=== PATIENT | male | born 1995 | race African-American/Black ===

== ENCOUNTER 2017-02-24 14:42 | Emergency (ER) | payer OTHER ==
[2017-02-24 15:10] VITALS: BP 135/77; PULSE 72; RESP 18; TEMP 97.5
--- NOTE | 2017-02-24 15:39 | ED ---
Lower Extremity Injury HPI - General Chief Complaint: Extremity Injury, Lower Stated Complaint: ankle pain Time Seen by Provider: 02/24/17 15:12 Source: patient, RN notes reviewed Mode of arrival: ambulatory Limitations: no limitations - History of Present Illness Initial Comments: 22-year-old female presents to the emergency department with a chief complaint of right ankle sprain. Patient states about a week ago he was doing some wrestling and he twisted his ankle. Patient states he continues has some pain along the medial aspect. Patient states he has been limping. Patient states work said that he needs to have it evaluated. This did not happen at work on her. Patient states that he has been able to ambulate. Patient denies numbness or tingling. Patient denies any recent fever, chills, shortness of breath, chest pain, back pain, abdominal pain, nausea vomiting, numbness or tingling, dysuria or hematuria, constipation or diarrhea, headaches or visual changes, or any other current symptoms. - Related Data Home Medications Medication Instructions Recorded Confirmed No Known Home Medications [No 02/24/17 02/24/17 Known Home Medications] Allergies Allergy/AdvReac Type Severity Reaction Status Date / Time No Known Allergies Allergy Verified 02/24/17 15:49 Review of Systems ROS Statement: Those systems with pertinent positive or pertinent negative responses have been documented in the HPI. ROS Other: All systems not noted in ROS Statement are negative. Past Medical History Past Medical History: Asthma History of Any Multi-Drug Resistant Organisms: None Reported Past Surgical History: No Surgical Hx Reported Past Psychological History: No Psychological Hx Reported Smoking Status: Never smoker Past Alcohol Use History: None Reported Past Drug Use History: None Reported General Exam - General Exam Comments Initial Comments: General: The patient is awake and alert, in no distress, and does not appear acutely ill. Neck: The neck is supple, there is no tenderness. Cardiovascular: There is a regular rate and rhythm. No murmur, rub or gallop is appreciated. Respiratory: Lungs are clear to auscultation, respirations are non-labored, breath sounds are equal. No wheezes, stridor, rales, or rhonchi. Musculoskeletal: Sensation intact. Full muscle Strength testing and range of motion of right knee and right ankle. Patient does have minimal tenderness along the medial aspect. No swelling or deformity. full range of motion of the right foot with no bony tenderness. Neurological: CN II-XII intact, There are no obvious motor or sensory deficits. Coordination appears grossly intact. Speech is normal. Skin: Skin is warm and dry and no rashes or lesions are noted. Psychiatric: Normal mood and affect. Limitations: no limitations Course Vital Signs 02/24/17 15:07 Temperature 97.5 F L Pulse Rate 72 Respiratory 18 Rate Blood Pressure 135/77 O2 Sat by Pulse 95 Oximetry Medical Decision Making - Medical Decision Making 21-year-old male presents emergency department with history of right ankle sprain. Patient's x-rays reviewed and negative. This time we discussed ice. We discussed return parameters and follow-up. We discussed all the patient's questions. He stated he understood the plan. All questions have been answered. He will be discharged. - Radiology Data Radiology results: report reviewed, image reviewed Disposition Clinical Impression: Right ankle sprain Disposition: HOME SELF-CARE Condition: Stable Instructions: Ankle Sprain (ED) Additional Instructions: Please use medication as discussed. Please follow up with family doctor if symptoms have not improved over the next two days. Please return to the emergency room if your symptoms increase or worsen or for any other concerns. Referrals: Saúl Scales MD [STAFF PHYSICIAN] - 1-2 days Time of Disposition: 15:54
--- NOTE | 2017-02-24 15:51 | XR ---
EXAMINATION TYPE: XR ankle complete RT DATE OF EXAM: 02/24/2017 3:46 PM CLINICAL HISTORY: Medial side pain. TECHNIQUE: Frontal, lateral and oblique images of the right ankle are obtained. COMPARISON: None. FINDINGS: There is no acute fracture/dislocation evident in the right ankle. The ankle mortise appe ars within normal limits. The overlying soft tissue appears unremarkable. IMPRESSION: There is no acute fracture or dislocation in the right ankle. Unremarkable study.
== END 2017-02-24 16:05 | disposition home or self-care (01) ==
LOC: EC 14:42
DX: S93.401A Sprain of unspecified ligament of right ankle, initial encounter (principal); X50.1XXA Overexertion from prolonged static or awkward postures, initial encounter; Y93.72 Activity, wrestling
CPT/HCPCS: 99283

== ENCOUNTER 2017-06-10 10:20 | Emergency (ER) | payer OTHER ==
[2017-06-10] MEDS ORDERED: IPRATROPIUM-ALBUTEROL 3 ML NEB INHALATION STA (10:51)
--- NOTE | 2017-06-10 11:01 | ED ---
SOB HPI - General Chief Complaint: Shortness of Breath Stated Complaint: reynaldo Time Seen by Provider: 06/10/17 10:45 Source: patient, RN notes reviewed Mode of arrival: ambulatory Limitations: no limitations - History of Present Illness Initial Comments: 22-year-old male presents emergency Department with chief complaint of shortness of breath, cough 2 weeks. Patient states he has a history of asthma has been using his an inhaler with minimal relief. Patient has had some wheezing. Patient states his cough is dry and nonproductive. Denies fever, chills, sore throat, sinus congestion, ear pain, and dizziness. Patient has NO KNOWN DRUG ALLERGIES. Denies any nausea vomiting no sick contacts. - Related Data Home Medications Medication Instructions Recorded Confirmed Albuterol Inhaler [Ventolin Hfa 2 puff INHALATION RT-Q6H PRN 06/10/17 06/10/17 Inhaler] Previous Rx's Medication Instructions Recorded Azithromycin [Zithromax Z-pack] 0 mg PO DIRECTED #1 pack 06/10/17 predniSONE 50 mg PO DAILY #5 tab 06/10/17 Allergies Allergy/AdvReac Type Severity Reaction Status Date / Time No Known Allergies Allergy Verified 06/10/17 11:47 Review of Systems ROS Statement: Those systems with pertinent positive or pertinent negative responses have been documented in the HPI. ROS Other: All systems not noted in ROS Statement are negative. Past Medical History Past Medical History: Asthma History of Any Multi-Drug Resistant Organisms: None Reported Past Surgical History: No Surgical Hx Reported Past Psychological History: No Psychological Hx Reported Smoking Status: Never smoker Past Alcohol Use History: None Reported Past Drug Use History: None Reported General Exam Limitations: no limitations General appearance: alert, in no apparent distress Head exam: Present: atraumatic, normocephalic, normal inspection Eye exam: Present: normal appearance, PERRL, EOMI. Absent: scleral icterus, conjunctival injection, periorbital swelling ENT exam: Present: normal exam, normal oropharynx, mucous membranes moist, TM's normal bilaterally, normal external ear exam Neck exam: Present: normal inspection, full ROM. Absent: tenderness, meningismus, lymphadenopathy Respiratory exam: Present: wheezes (Faint). Absent: normal lung sounds bilaterally, respiratory distress, rales, rhonchi, stridor Cardiovascular Exam: Present: regular rate, normal rhythm, normal heart sounds. Absent: systolic murmur, diastolic murmur, rubs, gallop, clicks GI/Abdominal exam: Present: soft, normal bowel sounds. Absent: distended, tenderness, guarding, rebound, rigid Course Vital Signs 06/10/17 06/10/17 06/10/17 10:40 11:19 11:29 Temperature 99.0 F Pulse Rate 85 84 84 Respiratory 20 Rate Blood Pressure 136/85 O2 Sat by Pulse 96 Oximetry Medical Decision Making - Medical Decision Making 22-year-old male present emergency department for cough and shortness breath. Patient has asthmatic bronchitis. Chest x-ray does not show an acute pneumonia. Patient was started on azithromycin as a cough is from consistent for 2 weeks. Patient was given steroids and continuation of inhaler. Return parameters were discussed. Disposition Clinical Impression: Asthmatic bronchitis Disposition: HOME SELF-CARE Condition: Stable Instructions: Acute Bronchitis (ED) Additional Instructions: Please return to the Emergency Department if symptoms worsen or any other concerns. Prescriptions: Azithromycin [Zithromax Z-pack] 0 mg PO DIRECTED #1 pack predniSONE 50 mg PO DAILY #5 tab Referrals: None,Stated [Primary Care Provider] - 1-2 days Time of Disposition: 11:49
--- NOTE | 2017-06-10 11:14 | XR ---
EXAMINATION TYPE: XR chest 2V DATE OF EXAM: 06/10/2017 COMPARISON: NONE HISTORY: Shortness of breath and cough 2 weeks. History of asthma. TECHNIQUE: Frontal and lateral views of the chest are obtained. FINDINGS: There is no focal air space opacity, pleural effusion, or pneumothorax seen. The cardiac silhouette size is within normal limits. The osseous structures are intact. IMPRESSION: No acute cardiopulmonary process.
[2017-06-10 12:09] VITALS: BP 135/62; PULSE 80; RESP 18; TEMP 97.9
== END 2017-06-10 12:13 | disposition home or self-care (01) ==
LOC: EC 10:20
DX: J45.909 Unspecified asthma, uncomplicated (principal)
CPT/HCPCS: 71020; 94640; 99285

== ENCOUNTER 2017-12-16 17:42 | Emergency (ER) | payer OTHER ==
[2017-12-16 18:21] VITALS: BP 142/91; PULSE 76; RESP 20; TEMP 98.3
--- NOTE | 2017-12-16 18:39 | ED ---
General Adult HPI - General Chief complaint: Extremity Injury, Upper Stated complaint: Finger injury Time Seen by Provider: 12/16/17 18:26 Source: patient, RN notes reviewed Mode of arrival: ambulatory Limitations: no limitations - History of Present Illness Initial comments: Patient 42-year-old male who presents emergency room today with chief complaint of injury to his right thumb that occurred 2 days ago. He states he was walking down some steps when he slipped and tried to catch himself. He states he injured the right thumb at the time. He states worse with flexion and extension at the PIP joint. He denies any other injury or complaint. Patient denies any recent fever, chills, shortness of breath, chest pain, back pain, abdominal pain, nausea or vomiting, numbness or tingling, headaches or visual changes, or any other complaints. - Related Data Previous Rx's Medication Instructions Recorded Ibuprofen [Motrin] 600 mg PO Q6HR PRN #20 day 12/16/17 Allergies Allergy/AdvReac Type Severity Reaction Status Date / Time No Known Allergies Allergy Verified 12/16/17 18:45 Review of Systems ROS Statement: Those systems with pertinent positive or pertinent negative responses have been documented in the HPI. ROS Other: All systems not noted in ROS Statement are negative. Past Medical History Past Medical History: Asthma History of Any Multi-Drug Resistant Organisms: None Reported Past Surgical History: No Surgical Hx Reported Past Psychological History: No Psychological Hx Reported Smoking Status: Never smoker Past Alcohol Use History: None Reported Past Drug Use History: None Reported General Exam - General Exam Comments Initial Comments: General: The patient is awake and alert, in no distress, and does not appear acutely ill. Neck: The neck is supple. Musculoskeletal: Patient does have moderate swelling to the right thumb. Shows limited range of motion with flexion and extension at the PIP joint minus just a few degrees. Sensations are intact pulses equal bilateral 2+. His cap refill is less than 2 seconds. Neurological: A&O x 3. CN II-XII intact, There are no obvious motor or sensory deficits. Coordination appears grossly intact. Speech is normal. Skin: Skin is warm and dry and no rashes or lesions are noted. Psychiatric: Normal mood and affect. Limitations: no limitations Course Vital Signs 12/16/17 18:19 Temperature 98.3 F Pulse Rate 76 Respiratory 20 Rate Blood Pressure 142/91 O2 Sat by Pulse 99 Oximetry Medical Decision Making - Medical Decision Making X-rays reviewed and negative for any acute fracture dislocation. Results were discussed with the patient. He is advised to continue ice elevate the affected areas for pain. Advised follow-up with orthopedics over the next 7-10 days if symptoms persist. Advised return if any symptoms increase worsen. Disposition Clinical Impression: Thumb sprain Disposition: HOME SELF-CARE Condition: Good Instructions: Skier's Thumb (ED) Additional Instructions: Please use medication as discussed. Please follow-up with orthopedics in 7-10 days if symptoms have not improved. Please return to emergency room if the symptoms increase or worsen or for any other concerns. Prescriptions: Ibuprofen [Motrin] 600 mg PO Q6HR PRN #20 day PRN Reason: Pain Referrals: None,Stated [Primary Care Provider] - 1-2 days Anders Orozco DO [Doctor of Osteopathic Medicine] - 1-2 days Time of Disposition: 19:17
--- NOTE | 2017-12-16 19:13 | XR ---
EXAMINATION TYPE: XR hand complete RT DATE OF EXAM: 12/16/2017 COMPARISON: NONE HISTORY: Fall with hand pain TECHNIQUE: 3 views FINDINGS: I see no fracture nor dislocation. Carpal bones appear intact. Metacarpals appear normal. IMPRESSION: Negative right hand exam.
== END 2017-12-16 19:22 | disposition home or self-care (01) ==
LOC: EC 17:42
DX: S63.601A Unspecified sprain of right thumb, initial encounter (principal); W10.9XXA Fall (on) (from) unspecified stairs and steps, initial encounter; Y93.01 Activity, walking, marching and hiking; Y92.89 Other specified places as the place of occurrence of the external cause
CPT/HCPCS: 99283

== ENCOUNTER 2018-04-12 01:19 | Emergency (ER) | payer OTHER ==
[2018-04-12] MEDS ORDERED: methylPREDNISolone SOD SUCCI 125 MG/2 ML VIAL IV STA (01:35)
[2018-04-12] MEDS ORDERED: diphenhydrAMINE 50 MG/ML 1 ML VIAL IVP STA (01:35)
[2018-04-12] MEDS ORDERED: FAMOTIDINE 20 MG/2 ML VIAL IV STA (01:35)
--- NOTE | 2018-04-12 01:39 | ED ---
General Adult HPI - General Chief complaint: Allergic Reaction Stated complaint: Possible ALLERGIC reaction Time Seen by Provider: 04/12/18 01:22 Source: patient, RN notes reviewed Mode of arrival: EMS Limitations: no limitations - History of Present Illness Initial comments: Patient is a pleasant 23-year-old male presenting to the emergency department with concerns for ALLERGIC reaction. Onset was fairly sudden around 1 hour ago. Onset was following eating a supporting pizza. Patient believes he has been exposed to all the items on it previously. No history of similar symptoms previously. Patient states his throat feels itchy and swollen. Patient feels a little short of breath. Patient does have nasal congestion. Patient states his skin felt itchy earlier however that has essentially resolved. No swelling of the face or lips or tongue. - Related Data Previous Rx's Medication Instructions Recorded Ibuprofen [Motrin] 600 mg PO Q6HR PRN #20 day 12/16/17 predniSONE 20 mg PO BID #10 tab 04/12/18 Allergies Allergy/AdvReac Type Severity Reaction Status Date / Time No Known Allergies Allergy Verified 04/12/18 01:29 Review of Systems ROS Statement: Those systems with pertinent positive or pertinent negative responses have been documented in the HPI. ROS Other: All systems not noted in ROS Statement are negative. Constitutional: Denies: fever Eyes: Denies: eye pain ENT: Denies: ear pain Respiratory: Reports: dyspnea. Denies: cough Cardiovascular: Denies: chest pain Endocrine: Denies: fatigue Gastrointestinal: Denies: abdominal pain Genitourinary: Denies: dysuria Musculoskeletal: Denies: back pain Skin: Denies: rash Neurological: Denies: weakness Past Medical History Past Medical History: Asthma History of Any Multi-Drug Resistant Organisms: None Reported Past Surgical History: No Surgical Hx Reported Past Psychological History: No Psychological Hx Reported Smoking Status: Current every day smoker Past Alcohol Use History: None Reported Past Drug Use History: None Reported General Exam Limitations: no limitations General appearance: alert, in no apparent distress Head exam: Present: atraumatic Eye exam: Present: normal appearance, PERRL ENT exam: Present: other (Minimal edema of the uvula. No edema of the tongue or lips.) Neck exam: Present: normal inspection Respiratory exam: Present: normal lung sounds bilaterally. Absent: respiratory distress, wheezes, accessory muscle use Cardiovascular Exam: Present: regular rate, normal rhythm GI/Abdominal exam: Present: soft. Absent: tenderness Extremities exam: Present: normal inspection Neurological exam: Present: alert Psychiatric exam: Present: normal affect, normal mood Skin exam: Present: normal color Course Vital Signs 04/12/18 01:25 Temperature 97.4 F L Pulse Rate 96 Respiratory 20 Rate Blood Pressure 137/80 O2 Sat by Pulse 93 L Oximetry Medical Decision Making - Medical Decision Making Patient reevaluated and feels much better. Uvula exam is unchanged or slightly improved. Patient denies any dyspnea and requests discharge. Disposition Clinical Impression: Allergic reaction Disposition: HOME SELF-CARE Condition: Stable Instructions: Allergies (ED), Food Allergy (ED) Additional Instructions: Please follow-up with primary care physician in the next day or 2 for recheck. Continue Benadryl 4 times daily for the next 5 days. Return for swelling, difficulty breathing, worsening or changing symptoms or other concerns. Prescriptions: predniSONE 20 mg PO BID #10 tab Is patient prescribed a controlled substance at d/c from ED?: No Referrals: Gardenia Velez DO [REFERRING] - 1-2 days Time of Disposition: 02:54
[2018-04-12 03:32] VITALS: BP 117/66; PULSE 75; RESP 16; TEMP 97.2
== END 2018-04-12 03:37 | disposition home or self-care (01) ==
LOC: EC 01:19
DX: T78.40XA Allergy, unspecified, initial encounter (principal); J45.909 Unspecified asthma, uncomplicated; F17.200 Nicotine dependence, unspecified, uncomplicated
CPT/HCPCS: 99283; 96374; 96375 ×2; J1200; J2930

== ENCOUNTER 2018-05-18 12:48 | Emergency (ER) | payer OTHER ==
[2018-05-18 13:07] VITALS: BP 154/100; PULSE 89; RESP 18; TEMP 98
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
[2018-05-18] MEDS ORDERED: SODIUM CHLORIDE 0.9% 1,000 ML IV ONE (14:20)
[2018-05-18 15:23] LABS: Basophils % (A) 1 %; Eosinophils # (A) 0.2 k/uL (0-0.7); Eosinophils % (A) 3 %; HGB 16.5 gm/dL (13.0-17.5); Lymphocytes # (A) 1.6 k/uL (1.0-4.8); Lymphocytes % (A) 27 %; MCH 26.8 pg (25.0-35.0); Mean Platelet Volume 6.8; Monocytes # (A) 0.4 k/uL (0-1.0); Monocytes % (A) 7 %; Neutrophils # (A) 3.6 k/uL (1.3-7.7); Neutrophils % (A) 60 %; Platelet Count 208 k/uL (150-450); RBC 6.18 m/uL (4.30-5.90); RDW 13.4 % (11.5-15.5)
[2018-05-18 15:32] LABS: ALT 32 U/L (21-72); AST 28 U/L (17-59); Albumin 4.4 g/dL (3.5-5.0); Alkaline Phosphatase 71 U/L (38-126); Anion Gap 10 mmol/L; Blood Urea Nitrogen 9 mg/dL (9-20); Calcium 9.4 mg/dL (8.4-10.2); Carbon Dioxide 27 mmol/L (22-30); Chloride 103 mmol/L (98-107); Glucose 106 mg/dL (74-99); Potassium 3.7 mmol/L (3.5-5.1); Sodium 140 mmol/L (137-145); Total Bilirubin 1.3 mg/dL (0.2-1.3); Total Protein 7.6 g/dL (6.3-8.2)
[2018-05-18 16:18] LABS: Amorphous Sediment,Urine Rare /hpf; Appearance,Urine Cloudy (Clear); Bilirubin,Urine Negative (Negative); Blood,Urine Negative (Negative); Color,Urine Yellow; Glucose,Urine (UA) Negative (Negative); Ketones,Urine 2+ (Negative); Leukocyte Esterase,Urine Negative (Negative); Mucus,Urine Few /hpf; Nitrite,Urine Negative (Negative); Protein,Urine 1+ (Negative); Specific Gravity,Urine 1.022 (1.001-1.035); Squamous Epithelial Cell,Urine 1 /hpf (0-4); WBC,Urine 1 /hpf (0-5)
[2018-05-18 16:29] LABS: Amphetamine Screen,Urine Not Detected (NotDetected); Barbiturate Screen,Urine Not Detected (NotDetected); Benzodiazepines Screen,Urine Not Detected (NotDetected); Cocaine Screen,Urine Not Detected (NotDetected); Methadone Screen, Urine Not Detected (NotDetected); Opiate Screen,Urine Not Detected (NotDetected); Oxycodone Screen, Urine Not Detected (NotDetected); Phencyclidine Screen,Urine Not Detected (NotDetected); Tricyclic Antidepressant,Urine Not Detected (NotDetected); Urn Cannabinoid Scrn Detected (NotDetected)
== END 2018-05-18 17:14 | disposition home or self-care (01) ==
LOC: EC 12:48
DX: F32.9 Major depressive disorder, single episode, unspecified (principal); E86.0 Dehydration; R11.0 Nausea; R00.2 Palpitations; F17.200 Nicotine dependence, unspecified, uncomplicated; Z59.0 Homelessness
CPT/HCPCS: 36415; 80053; 80306; 81001; 82075; 85025; 93005; 96360; 96361; 99284

== ENCOUNTER 2019-02-02 12:14 | Emergency (ER) | payer OTHER ==
[2019-02-02 12:32] VITALS: PULSE 107
[2019-02-02] MEDS ORDERED: ONDANSETRON ODT 4 MG TAB PO STA (12:46)
[2019-02-02] MEDS ORDERED: IBUPROFEN 600 MG TAB PO STA (12:46)
[2019-02-02] MEDS ORDERED: ACETAMINOPHEN TAB 500 MG TAB PO STA (12:46)
[2019-02-02] MEDS ORDERED: OSELTAMIVIR 75 MG CAP PO STA (13:12)
--- NOTE | 2019-02-02 13:12 | ED ---
General Adult HPI - General Chief complaint: Fever Stated complaint: NVD Time Seen by Provider: 02/02/19 12:25 Source: patient, RN notes reviewed Mode of arrival: EMS Limitations: no limitations - History of Present Illness Initial comments: This is a 23-year-old male who presents emergency Department complaining of a fever and a cough over the last couple of days. Patient states he is coughing so hard he vomited multiple times. Patient states he is unable to keep down at still or cough medicine because he eventually threw it up because of his sig nificant cough. Patient denies shortness of breath or difficulty breathing. Patient denies any chest pain. Patient denies any abdominal pain. Patient denies any lightheadedness or dizziness. Patient states he does have a mild headache. Patient denies any rashes lesions or areas of erythema - Related Data Previous Rx's Medication Instructions Recorded Oseltamivir [Tamiflu] 75 mg PO Q12HR 5 Days cap 02/02/19 Allergies Allergy/AdvReac Type Severity Reaction Status Date / Time No Known Allergies Allergy Verified 02/02/19 12:24 Review of Systems ROS Statement: Those systems with pertinent positive or pertinent negative responses have been documented in the HPI. ROS Other: All systems not noted in ROS Statement are negative. Past Medical History Past Medical History: Asthma History of Any Multi-Drug Resistant Organisms: None Reported Past Surgical History: No Surgical Hx Reported Past Psychological History: Depression Smoking Status: Current some day smoker Past Alcohol Use History: Rare Past Drug Use History: Marijuana General Exam - General Exam Comments Initial Comments: GENERAL: Patient is well-developed and well-nourished. Patient is nontoxic and well- hydrated and is in mild distress. ENT: Neck is soft and supple. No significant lymphadenopathy is noted. Oropharynx is clear. Moist mucous membranes. Neck has full range of motion without eliciting any pain. EYES: The sclera were anicteric and conjunctiva were pink and moist. Extraocular movements were intact and pupils were equal round and reactive to light. Eyelids were unremarkable. PULMONARY: Unlabored respirations. Good breath sounds bilaterally. No audible rales rhonchi or wheezing was noted. CARDIOVASCULAR: There is a regular rate and rhythm without any murmurs gallops or rubs. ABDOMEN: Soft and nontender with normal bowel sounds. No palpable organomegaly was noted. There is no palpable pulsatile mass. SKIN: Skin is clear with no lesions or rashes and otherwise unremarkable. NEUROLOGIC: Patient is alert and oriented x3. Cranial nerves II through XII are grossly intact. Motor and sensory are also intact. Normal speech, volume and content. Symmetrical smile. MUSCULOSKELETAL: Normal extremities with adequate strength and full range of motion. No lower extremity swelling or edema. No calf tenderness. LYMPHATICS: No significant lymphadenopathy is noted PSYCHIATRIC: Normal psychiatric evaluation. Limitations: no limitations Course Vital Signs 02/02/19 12:22 Temperature 100.7 F H Pulse Rate 107 H Respiratory 22 Rate Blood Pressure 144/86 O2 Sat by Pulse 99 Oximetry Medical Decision Making - Medical Decision Making Patient received Motrin and Tylenol and Zofran and emergency department. Patient also received Tamiflu in the emergency department. - Lab Data Lab Results 02/02/19 Range/Units 12:25 Influenza Type A RNA Detected H (Not Detectd) Influenza Type B (PCR) Not Detected (Not Detectd) Disposition Clinical Impression: Influenza Disposition: HOME SELF-CARE Condition: Good Instructions (If sedation given, give patient instructions): Influenza (ED) Prescriptions: Oseltamivir [Tamiflu] 75 mg PO Q12HR 5 Days cap Is patient prescribed a controlled substance at d/c from ED?: No Referrals: None,Stated [Primary Care Provider] - 1-2 days Time of Disposition: 13:11
[2019-02-02 13:23] VITALS: BP 140/81; RESP 16; TEMP 99.8
--- NOTE | 2019-02-02 13:24 | XR ---
EXAMINATION TYPE: XR chest 2V DATE OF EXAM: 02/02/2019 COMPARISON: Prior chest x-ray 08/29/2017 HISTORY: Difficulty breathing TECHNIQUE: Frontal and lateral views of the chest are obtained. FINDINGS: Bronchial wall thickening is present. Correlate for reactive airways disease, bronchitis IMPRESSION: No acute cardiopulmonary process.
== END 2019-02-02 13:24 | disposition home or self-care (01) ==
LOC: EC 12:14
DX: J10.1 Influenza due to other identified influenza virus with other respiratory manifestations (principal); J45.909 Unspecified asthma, uncomplicated; R11.2 Nausea with vomiting, unspecified; R19.7 Diarrhea, unspecified; F17.200 Nicotine dependence, unspecified, uncomplicated
CPT/HCPCS: 71046; 87502; 99284

== ENCOUNTER 2019-05-26 18:50 | Emergency (ER) | payer OTHER ==
[2019-05-26 19:02] VITALS: BP 150/89; PULSE 78; RESP 18; TEMP 98.4
--- NOTE | 2019-05-26 19:43 | ED ---
General Adult HPI - General Chief complaint: Recheck/Abnormal Lab/Rx Stated complaint: Dizzy Time Seen by Provider: 05/26/19 19:10 Source: patient Mode of arrival: ambulatory Limitations: no limitations - History of Present Illness Initial comments: 24-year-old male patient presents to the emergency department today requesting a clearance to return to work. Patient states yesterday while at work he had a 2 hour period where he felt very dizzy and lightheaded. Patient states that the symptoms resolved however his job wanted him to get clearance to return to work tomorrow. Patient states that today he has felt fine. He denies any current dizziness, blurred vision, double vision, headache, numbness, tingling, or weakness. Denies any head injury. States that prior to onset of symptoms yesterday he had not eaten or drank anything. States it is very warm outside and he was sweating. He feels he may have been dehydrated. States he has a med ical history significant for asthma and eczema but denies any current concerns for these conditions. Patient denies any recent rash, fever, chills, shortness breath, chest pain, abdominal pain, nausea, vomiting, diarrhea, constipation, back pain, hematuria, dysuria, urinary urgency, urinary frequency, or any other complaints. - Related Data Home Medications Medication Instructions Recorded Confirmed Albuterol Inhaler [Ventolin Hfa 1 - 2 puff INHALATION RT-Q6H PRN 05/26/19 05/26/19 Inhaler] Allergies Allergy/AdvReac Type Severity Reaction Status Date / Time No Known Allergies Allergy Verified 05/26/19 19:25 Review of Systems ROS Statement: Those systems with pertinent positive or pertinent negative responses have been documented in the HPI. ROS Other: All systems not noted in ROS Statement are negative. Past Medical History Past Medical History: Asthma History of Any Multi-Drug Resistant Organisms: None Reported Past Surgical History: No Surgical Hx Reported Past Psychological History: Depression Smoking Status: Current some day smoker Past Alcohol Use History: Rare Past Drug Use History: Marijuana General Exam Limitations: no limitations General appearance: alert, in no apparent distress Eye exam: Present: normal appearance, PERRL, EOMI. Absent: scleral icterus, conjunctival injection, nystagmus, periorbital swelling ENT exam: Present: normal exam, normal oropharynx, mucous membranes moist Respiratory exam: Present: normal lung sounds bilaterally. Absent: respiratory distress, wheezes, rales, rhonchi, stridor Cardiovascular Exam: Present: regular rate, normal rhythm, normal heart sounds. Absent: systolic murmur, diastolic murmur, rubs, gallop, clicks GI/Abdominal exam: Present: soft, normal bowel sounds. Absent: distended, tenderness, guarding, rebound, rigid Neurological exam: Present: alert, oriented X3, CN II-XII intact, other (Strength in all 4 Extremities is 5/5.) Psychiatric exam: Present: normal affect, normal mood Skin exam: Present: warm, dry, intact, normal color. Absent: rash Course Vital Signs 05/26/19 19:00 Temperature 98.4 F Pulse Rate 78 Respiratory 18 Rate Blood Pressure 150/89 O2 Sat by Pulse 98 Oximetry Medical Decision Making - Medical Decision Making 24-year-old male patient presents to the emergency department today for clearance to return to work. Patient states yesterday he had a 2 hour period where he felt dizzy. States that he is now symptom-free by his job requires him to have a clearance to return to work. Patient believes he may have been dehydrated because he hadn't eaten or drank anything prior to working out in the hot sun all day. Patient states he is otherwise healthy. He is declining test ing at this time and is requesting a work note only. He is instructed to follow-up with his primary care physician for recheck in 1-2 days. Return parameters were discussed in detail. He verbalizes understanding and agrees with this plan. Disposition Clinical Impression: Dizziness Disposition: HOME SELF-CARE Condition: Good Instructions (If sedation given, give patient instructions): Dizziness (ED) Additional Instructions: Increase fluids. Follow-up through primary care physician for recheck in 1-2 days. Return to the emergency department immediately for any new, worsening, or concerning symptoms. Is patient prescribed a controlled substance at d/c from ED?: No Referrals: None,Stated [Primary Care Provider] - 1-2 days Time of Disposition: 19:42
== END 2019-05-26 19:49 | disposition home or self-care (01) ==
LOC: EC 18:50
DX: R42 Dizziness and giddiness (principal); J45.909 Unspecified asthma, uncomplicated; F17.200 Nicotine dependence, unspecified, uncomplicated
CPT/HCPCS: 99283

== ENCOUNTER 2019-06-28 11:23 | Emergency (ER) | payer OTHER ==
[2019-06-28 12:04] VITALS: TEMP 98.4
[2019-06-28] MEDS ORDERED: DEXAMETHASONE SOD PHOSPHATE 10 MG/ML 1 ML VIAL IM STA (12:22)
--- NOTE | 2019-06-28 13:48 | ED ---
Allergic Reaction HPI - General Chief complaint: Allergic Reaction Stated complaint: allergic reaction; swollen eyes Time Seen by Provider: 06/28/19 12:02 Source: patient Mode of arrival: ambulatory Limitations: no limitations - History of Present Illness Initial Comments: Patient is a 34-year-old male presenting to emergency per with a chief complaint of eye swelling. Patient reports smoking marijuana last night when he developed a sudden onset of bilateral periorbital edema. Patient reports the symptoms have since slowly resolved. He reports left-sided swelling is causing trouble seeing. Patient reports difficulty opening his left eye. Patient denies pain with extra ocular movements. Patient denies any discharge. Patient reports bilateral eye discomfort. Patient is unsure whether the marijuana was laced with any other drugs. Patient denies chest pain, shortness of breath, dyspnea, dysphagia, drooling. Patient reports taking Benadryl with minimal edema. Patient is also requesting to get tested for gonorrhea and chlamydia. Patient denies any urinary symptoms. Patient does report unprotected sexual intercourse. - Related Data Previous Rx's Medication Instructions Recorded methylPREDNISolone Dose Pack 4 mg PO DIRECTED #21 package 06/28/19 [Medrol Dose Pack] Allergies Allergy/AdvReac Type Severity Reaction Status Date / Time No Known Allergies Allergy Verified 06/28/19 11:56 Review of Systems ROS Statement: Those systems with pertinent positive or pertinent negative responses have been documented in the HPI. ROS Other: All systems not noted in ROS Statement are negative. Past Medical History Past Medical History: Asthma History of Any Multi-Drug Resistant Organisms: None Reported Past Surgical History: No Surgical Hx Reported Past Psychological History: Depression Smoking Status: Current some day smoker Past Alcohol Use History: Rare Past Drug Use History: Marijuana General Exam Limitations: no limitations General appearance: alert, in no apparent distress Head exam: Present: atraumatic, normocephalic, normal inspection Eye exam: Present: PERRL, EOMI, periorbital swelling (Bilateral periorbital swelling. More the left eye compared to the right.). Absent: normal appearance, conjunctival injection, periorbital tenderness, other (No entrapm ent, no discharge, no pain with extraocular movements.) Pupils: Present: normal accommodation ENT exam: Present: normal exam, normal oropharynx (Uvula midline. No enlarged tonsils or exudates noted.), mucous membranes moist, TM's normal bilaterally, normal external ear exam Neck exam: Present: normal inspection, full ROM Respiratory exam: Present: normal lung sounds bilaterally Cardiovascular Exam: Present: regular rate, normal rhythm, normal heart sounds GI/Abdominal exam: Present: soft, normal bowel sounds. Absent: tenderness, guarding, rebound Extremities exam: Present: normal inspection, full ROM Back exam: Present: normal inspection, full ROM Neurological exam: Present: alert, oriented X3 Psychiatric exam: Present: normal affect, normal mood Skin exam: Present: warm, intact, normal color Course Vital Signs 06/28/19 06/28/19 11:45 11:59 Temperature 98.4 F Pulse Rate 72 Respiratory 18 18 Rate Blood Pressure 146/93 O2 Sat by Pulse 99 Oximetry Medical Decision Making - Medical Decision Making Patient is a 24-year-old male presenting to emergency Department with chief complaint of eye swelling. Patient developed bilateral periorbital edema after smoking marijuana last night. Patient is unaware whether the marijuana was laced with other drugs. Patient denies dyspnea, dysphagia, drooling or shortness of breath. Patient reports the symptoms have improved since yesterday. Patient denies pain with extraocular movements. No entrapment noted. At this point I suspect an ALLERGIC reaction to some of the substances the patient has been using. Patient was given 10 mg of Decadron. On reevaluation patient reports feeling better. Visual acuity is 20/20 bilateral. The swelling has also decreased. Patient will be discharged with a Medrol Dosepak. Patient is to follow-up with primary care. Patient patient has no urinary symptoms but is requesting gonorrhea and chlamydia testing. Gonorrhea and chlamydia samples ending. Strict return parameters were thoroughly discussed the patient was understanding and agreeable. Case discussed with physician. Disposition Clinical Impression: Allergic reaction Disposition: HOME SELF-CARE Condition: Stable Instructions (If sedation given, give patient instructions): Anaphylaxis (ED) Additional Instructions: Please follow with primary care. Please take prescribed medication as directed. Please return to emergency department is symptoms worsen. Is patient prescribed a controlled substance at d/c from ED?: No Referrals: None,Stated [Primary Care Provider] - 1-2 days Time of Disposition: 13:47
[2019-06-28 14:03] VITALS: BP 132/92; PULSE 64; RESP 16
[2019-06-29 15:09] LABS: C. trachomatis,PCR Negative (Neg,Equiv); Chlamydia trachomatis Source Urine; N. gonorrhoeae,PCR Negative (Neg,Equiv); Neisseria Source Urine
== END 2019-06-28 14:02 | disposition home or self-care (01) ==
LOC: EC 11:23
DX: T78.40XA Allergy, unspecified, initial encounter (principal); H05.223 Edema of bilateral orbit; F12.90 Cannabis use, unspecified, uncomplicated; F17.200 Nicotine dependence, unspecified, uncomplicated
CPT/HCPCS: 87491; 87591; 96372; 99283; J1100

== ENCOUNTER 2019-07-09 19:56 | Emergency (ER) | payer OTHER ==
[2019-07-09] MEDS ORDERED: predniSONE 50 MG TAB PO STA (20:26)
[2019-07-09] MEDS ORDERED: IPRATROPIUM-ALBUTEROL 3 ML NEB INHALATION STA (20:26)
[2019-07-09] MEDS ORDERED: ACETAMINOPHEN TAB 325 MG TAB PO STA (20:30)
[2019-07-09] MEDS ORDERED: IBUPROFEN 600 MG TAB PO STA (20:30)
--- NOTE | 2019-07-09 21:03 | XR ---
EXAMINATION TYPE: XR chest 2V DATE OF EXAM: 07/09/2019 COMPARISON: February 02, 2019 HISTORY: Short of breath TECHNIQUE: Frontal and lateral views of the chest are obtained. FINDINGS: Heart and mediastinum are normal. Lungs are clear. Diaphragm is normal. Bony thorax appear s normal. IMPRESSION: Normal chest. No change.
[2019-07-09 21:07] VITALS: RESP 18
[2019-07-09] MEDS ORDERED: ALBUTEROL NEBULIZED 2.5 MG/3 ML INHALATION STA (21:50)
--- NOTE | 2019-07-09 23:00 | ED ---
General Adult HPI - General Chief complaint: Upper Respiratory Infection Stated complaint: YAA Time Seen by Provider: 07/09/19 20:11 Source: patient, RN notes reviewed, old records reviewed Mode of arrival: ambulatory Limitations: no limitations - History of Present Illness Initial comments: 24-year-old male patient with history of asthma presents ED chief complaint of 2 days of cough, congestion, asthma exacerbation. Patient also reports that he has anterior sinus pressure in his maxillary sinus. Patient denies any nausea or vomiting. Patient denies any other complaints. Systemic: Pt denies fatigue, fever/chills, rash. Pt denies weakness, night sweats, weight loss. Neuro: Pt denies headache, visual disturbances, syncope or pre-syncope. HEENT: Pt denies ocular discharge or irritation, otalgia, rhinorrhea, pharyngitis or notable lymphadenopathy. Cardiopulmonary: Pt denies chest pain, heart palpitations, dyspnea on exertion. Abdominal/GI: Pt denies abdominal pain, n/v/d. : Pt denies dysuria, burning w/ urination, frequency/urgency. Denies new onset urinary or bowel incontinence. MSK: Pt denies myalgia, loss of strength or function in extremities. Neuro: Pt denies new onset weakness, paresthesias. - Related Data Previous Rx's Medication Instructions Recorded Albuterol Inhaler [Ventolin Hfa 1 - 2 puff INHALATION Q4-6H PRN #1 07/09/19 Inhaler] inhaler Amoxicillin/Potassium Clav 1 each PO Q12HR 7 Days #14 tab 07/09/19 [Augmentin 875-125 Tablet] predniSONE 50 mg PO DAILY #5 tab 07/09/19 Allergies Allergy/AdvReac Type Severity Reaction Status Date / Time No Known Allergies Allergy Verified 07/09/19 22:40 Review of Systems ROS Statement: Those systems with pertinent positive or pertinent negative responses have been documented in the HPI. ROS Other: All systems not noted in ROS Statement are negative. Past Medical History Past Medical History: Asthma History of Any Multi-Drug Resistant Organisms: None Reported Past Surgical History: No Surgical Hx Reported Past Psychological History: Depression Smoking Status: Current some day smoker Past Alcohol Use History: Rare Past Drug Use History: Marijuana General Exam - General Exam Comments Initial Comments: Constitutional: NAD, AOX3, Pt has pleasant affect. HEENT: NC/AT, trachea midline, neck supple, no lymphadenopathy. Posterior pharynx non erythematous, without exudates. External ears appear normal, without discharge. Mucous membranes moist. Eyes PERRLA, EOM intact. There is no scleral icterus. No pallor noted. Cardiopulmonary: RRR, no murmurs, rubs or gallops, no JVD noted. Wheezing noted in anterior lung valenzuela, much improved after breathing treatment.. No peripheral edema. Abdominal exam: Abdomen soft and non-distended. Abdomen non-tender to palpation in all 4 quadrants. Bowel sounds active in LLQ. No hepatosplenomegaly. No ecchymosis Neuro: CN II-XII grossly intact. No nuchal rigidity. No raccon eyes, no garcia sign, no hemotympanum. No cervical spinal tenderness. MSK: No posterior calf tenderness bilaterally, homans sign negative bilaterally. Posterior tibialis and radial pulse +2 bilaterally. Sensation intact in upper and lower extremities. Full active ROM in upper and lower extremities, 5/5 stregnth. Limitations: no limitations Course Vital Signs 07/09/19 07/09/19 07/09/19 20:01 20:22 20:36 Temperature 99.5 F 102.2 F H Pulse Rate 106 H 97 Respiratory 24 20 Rate Blood Pressure 151/95 O2 Sat by Pulse 94 L Oximetry 07/09/19 07/09/19 07/09/19 20:51 21:06 21:48 Temperature 100.4 F H 97.9 F Pulse Rate 110 H 116 H 100 Respiratory 18 18 Rate Blood Pressure 154/88 144/85 O2 Sat by Pulse 93 L 94 L Oximetry 07/09/19 07/09/19 22:07 22:14 Temperature Pulse Rate 106 H 96 Respiratory Rate Blood Pressure O2 Sat by Pulse Oximetry Medical Decision Making - Medical Decision Making 24-year-old male patient with history of asthma presents ED chief complaint of 2 days of cough, congestion, asthma exacerbation. Patient also reports that he has anterior sinus pressure in his maxillary sinus. Patient denies any nausea or vomiting. Patient denies any other complaints. Vital signs initially displayed hypoxia of 94. Patient was administered 2 breathing treatments as well as prednisone. Chest x-ray revealed no acute process. On repeat evaluation patient patient pulse oxygenation was approximate 93%, however patient was lying down in bed , patient sat upright, oxygenation at 98%. Patient was offered admission for asthma exacerbation, declined. Patient discharged with steroids, breathing treatment. Patient will be placed on Augmentin for sinusitis. Case discussed with Dr. Goodson. - Lab Data Lab Results 07/09/19 Range/Units 21:46 Influenza Type A RNA Not Detected (Not Detectd) Influenza Type B (PCR) Not Detected (Not Detectd) Disposition Clinical Impression: Asthma exacerbation, Sinusitis Disposition: HOME SELF-CARE Condition: Stable Instructions (If sedation given, give patient instructions): Asthma (ED), Sinusitis (ED) Additional Instructions: Patient to adhere to previously discussed treatment plan and will take medication(s) as directed. Patient to follow up with PCP in 1-2 days. Patient to return to ED if symptoms do not improve. Take antibiotics as prescribed, follow up with primary care provider tomorrow, return to ER if condition worsens. Prescriptions: Amoxicillin/Potassium Clav [Augmentin 875-125 Tablet] 1 each PO Q12HR 7 Days #14 tab predniSONE 50 mg PO DAILY #5 tab Albuterol Inhaler [Ventolin Hfa Inhaler] 1 - 2 puff INHALATION Q4-6H PRN #1 inhaler PRN Reason: Cough Is patient prescribed a controlled substance at d/c from ED?: No Referrals: None,Stated [Primary Care Provider] - 1-2 days
[2019-07-09 23:17] VITALS: BP 131/89; PULSE 100; TEMP 98.9
== END 2019-07-09 23:17 | disposition home or self-care (01) ==
LOC: EC 19:56
DX: J45.901 Unspecified asthma with (acute) exacerbation (principal); J32.9 Chronic sinusitis, unspecified; F17.200 Nicotine dependence, unspecified, uncomplicated
CPT/HCPCS: 94640 ×2; 87502; 71046; 99285; J7512

== ENCOUNTER 2021-03-04 18:30 | Emergency (ER) | payer OTHER ==
[2021-03-04 18:36] VITALS: BP 168/97; PULSE 105; RESP 18; TEMP 99.1
--- NOTE | 2021-03-04 19:55 | ED ---
Psych HPI - General Chief Complaint: Psychiatric Symptoms Stated Complaint: Petition Time Seen by Provider: 03/04/21 18:30 Source: patient, police Mode of arrival: ambulatory - History of Present Illness Initial Comments: Patient is a 26-year-old male with past medical history of asthma who presents emergency Department petitioned by police. Patient was apparently sitting on t he side of the road near the white line. Police had approached him and told him that he needed to move away from the road. This is when the patient replied that he wouldn't care if he Hits. This prompted police to pick him up and bring him to the emergency department and petitioned him. Patient reports to me that he was trying to get arrested. He was kicked out of his "baby mamas" house and had nowhere to go. He wanted to get arrested so that he had a place to stay. He denies to me that he was intentionally trying to harm himself. I questioned the patient whether he has any family or friends for which she states no. Also reports that he can go to a [facility] because they weren't accepting any new people. This is not the first time the patient has been kicked out of his place of residence. Patient denies homicidal ideations. No drug or alcohol use. No other alleviating, head chef modifying factors - Related Data Previous Rx's Medication Instructions Recorded Albuterol Inhaler ([facility]) [Ventolin 1 - 2 puff INHALATION Q4-6H PRN #1 07/09/19 Hfa Inhaler ([facility])] inhaler Amoxicillin/Potassium Clav 1 each PO Q12HR 7 Days #14 tab 07/09/19 [Augmentin 875-125 Tablet] predniSONE 50 mg PO DAILY #5 tab 07/09/19 Allergies Allergy/AdvReac Type Severity Reaction Status Date / Time No Known Allergies Allergy Verified 03/04/21 18:36 Review of Systems ROS Statement: Those systems with pertinent positive or pertinent negative responses have been documented in the HPI. ROS Other: All systems not noted in ROS Statement are negative. Past Medical History Past Medical History: Asthma History of Any Multi-Drug Resistant Organisms: None Reported Past Surgical History: No Surgical Hx Reported Past Psychological History: Depression Past Alcohol Use History: Occasional, Rare Past Drug Use History: Marijuana General Exam Limitations: no limitations General appearance: alert, in no apparent distress Head exam: Present: atraumatic, normocephalic, normal inspection Eye exam: Present: normal appearance, PERRL, EOMI. Absent: scleral icterus, conjunctival injection, periorbital swelling ENT exam: Present: normal exam, mucous membranes moist Neck exam: Present: normal inspection. Absent: tenderness, meningismus, lymphadenopathy Respiratory exam: Present: normal lung sounds bilaterally. Absent: respiratory distress, wheezes, rales, rhonchi, stridor Cardiovascular Exam: Present: regular rate, normal rhythm, normal heart sounds. Absent: systolic murmur, diastolic murmur, rubs, gallop, clicks GI/Abdominal exam: Present: soft, normal bowel sounds. Absent: distended, tenderness, guarding, rebound, rigid Extremities exam: Present: normal inspection, full ROM, normal capillary refill. Absent: tenderness, pedal edema, joint swelling, calf tenderness Back exam: Present: normal inspection Neurological exam: Present: alert, oriented X3, CN II-XII intact Psychiatric exam: Present: normal affect, normal mood. Absent: depressed, homicidal ideation, suicidal ideation Skin exam: Present: warm, dry, intact, normal color. Absent: rash Course Vital Signs 03/04/21 18:31 Temperature 99.1 F Pulse Rate 105 H Respiratory 18 Rate Blood Pressure 168/97 O2 Sat by Pulse 98 Oximetry Medical Decision Making - Medical Decision Making Upon arrival patient was placed into room 12. There are history and physical exam was performed. I did review the petition. The patient is evaluated by myself and denies suicidal ideations. Patient states he just wants a place to go. He is evaluated by EPS and reports the same story. At this time the patient does not meet inpatient criteria. We do assist the patient a place to go. Patient given [facility] information. We instructed him if he has any new or worsening symptoms or does want to hurt himself to return to the emergency room. Patient agreed to this was discharged. Disposition Clinical Impression: Depression Disposition: HOME SELF-CARE Condition: Stable Instructions (If sedation given, give patient instructions): Depression (ED) Additional Instructions: Please follow up with your PCP in 2-4 days. Return to the emergency room for any new or worsening symptoms Is patient prescribed a controlled substance at d/c from ED?: No Referrals: None,Stated [Primary Care Provider] - 1-2 days Time of Disposition: 19:55
== END 2021-03-04 20:16 | disposition home or self-care (01) ==
LOC: EC 18:30
DX: F32.9 Major depressive disorder, single episode, unspecified (principal); J45.909 Unspecified asthma, uncomplicated
CPT/HCPCS: 82075; 99284